=== PATIENT | male | born 1995 | race Caucasian/White ===

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

== ENCOUNTER 2017-05-21 00:20 | Emergency (ER) | END 2017-05-21 03:32 | disposition home or self-care (01) ==

== ENCOUNTER 2017-09-06 17:29 | Emergency (ER) | END 2017-09-06 17:57 | disposition home or self-care (01) ==

== ENCOUNTER 2017-09-08 23:47 | Emergency (ER) | END 2017-09-09 02:44 | disposition home or self-care (01) ==

== ENCOUNTER 2017-11-20 15:39 | Emergency (ER) | END 2017-11-20 19:43 | disposition home or self-care (01) ==

== ENCOUNTER 2018-06-11 23:35 | Emergency (ER) | payer OTHER ==
[~2018-06-11] VITALS: Ht 179.1 cm; Wt 73.0 kg
[~2018-06-11 23:35] MED LIST changes: +AMOX1TAB10 PO; +AMOX500C2 PO; +BEN25 PO; +BENZ-6 PO; +FEXO180T61 PO; +FLUT9.9S NASAL; +HYDR-4011 PO; +LORA10CA PO; +NAPR-985 PO; +TRAM50TA2 PO
[2018-06-11 23:36] VITALS: Ht 179.1 cm; Wt 73.0 kg
[2018-06-12] MEDS ORDERED: PSEU120T12 PO (01:51)
[2018-06-12] MEDS ORDERED: AMOX1TAB10 PO (01:51)
--- NOTE | 2018-06-12 01:54 | ERD ---
ER Documentation Chief Complaint Chief Complaint flu-liked symptoms (body aches,nasal congestion,fever,achy throat) x3days HPI This is a 22-year-old male with a nonsignificant past medical history presents ED with complaints of nasal congestion and sinus pain and pressure for the past 3 days. Patient admits to green nasal drainage, congestion, headache, ear pain. Admits to mild cough. Denies shortness breath, trouble breathing, wheezing, fever, chills, nausea, vomiting, diarrhea, constipation or other symptoms. No known drug allergies. ROS All systems reviewed and are negative except as per history of present illness. Medications Home Meds Active Scripts Pseudoephedrine Hcl (Sudafed 12 Hour) 120 Mg Tablet.sa, 120 MG PO Q12 for 5 Days Prov:CARLOS TORRES PA-C 06/12/18 Amoxicillin/Potassium Clav (Amox-Clav 875-125 mg Tablet) 875-125 mg Tab, 1 TAB PO BID for 10 Days, #20 TAB Prov:CARLOS TORRES PA-C 06/12/18 Hydrocodone/Acetaminophen ([place] 5-325 Tablet) 1 Each Tablet, 1 TAB PO Q8H PRN for PAIN, #12 TAB Prov:MEENA CLAROS MD 11/20/17 Ibuprofen* (Motrin*) 600 Mg Tab, 600 MG PO Q8 for 5 Days, #15 TAB Prov:MEENA CLAROS MD 11/20/17 Loratadine* (Claritin*) 10 Mg Capsule, 10 MG PO DAILY, #30 CAP Prov:PASILATEQUILA CASTILLO 09/09/17 Benzonatate* (Tessalon Perle*) 100 Mg Capsule, 100 MG PO Q8H PRN for COUGH, #20 CAP Prov:PASTEQUILA RAMÍREZ F 09/09/17 Amoxicillin/Potassium Clav (Amox-Clav 875-125 mg Tablet) 875-125 mg Tab, 1 TAB PO BID for 10 Days, #20 TAB Prov:PASILATEQUILA CASTILLO F 09/09/17 Fluticasone Propionate (Flonase Allergy Relief) 9.9 Ml [place].susp, 1 SPRAY NASAL BID, #1 BOTTLE TO EACH NOSTRIL Prov:DUNG PABLO 09/06/17 Fexofenadine Hcl* (Rhina*) 180 Mg Tablet, 180 MG PO DAILY, #30 TAB Prov:DUNG PABLO Alexia 09/06/17 Diphenhydramine Hcl* (Benadryl*) 25 Mg Cap, 25 MG PO Q6, #30 CAP Prov:DUNG PABLO C 09/06/17 Ibuprofen* (Motrin*) 600 Mg Tab, 600 MG PO Q6H PRN for PAIN AND OR ELEVATED TEMP, #30 TAB Prov:ELZA PYLE PEACH GROWER 05/21/17 Amoxicillin* (Amoxicillin*) 500 Mg Cap, 500 MG PO TID for 10 Days, CAP Prov:ELZA PYLE PEACH GROWER 05/21/17 Naproxen* (Naprosyn*) 500 Mg Tablet, 500 MG PO BID PRN for PAIN AND/OR INFLAM MATION, #30 TAB Prov:ROSARIO LORD-C 12/03/16 Tramadol HCl (Tramadol HCl) 50 Mg Tablet, 50 MG PO Q4 PRN for PAIN, #20 TAB Prov:ROSARIO LORDC 12/03/16 Ibuprofen* (Motrin*) 600 Mg Tab, 600 MG PO Q6, #30 TAB Prov:ROSARIO LORD-C 11/26/15 Gentamicin Sulfate* (Gentamicin Sulfate* Ophth) 0.3% - 5 Ml Drops, 1 DROP LEFT EYE Q4 for 7 Days, EA Prov:ROSARIO LORD-C 11/26/15 Allergies Allergies: Coded Allergies: No Known Allergy (Unverified , 05/21/17) PMhx/Soc Medical and Surgical Hx: pt denies Medical Hx, pt denies Surgical Hx History of Surgery: No Anesthesia Reaction: No Hx Neurological Disorder: No Hx Respiratory Disorders: No Hx Cardiac Disorders: No Hx Psychiatric Problems: No Hx Miscellaneous Medical Probl: No Hx Alcohol Use: Yes Hx Substance Use: Yes (marijuana) Hx Tobacco Use: No FmHx Family History: No diabetes Physical Exam Vitals Vital Signs Date Temp Pulse Resp B/P (MAP) Pulse Ox O2 O2 Flow FiO2 Time Delivery Rate 06/11/18 98.8 72 18 112/60 97 23:36 (77) Physical Exam Const: No acute distress Head: Atraumatic Eyes: Normal Conjunctiva ENT: Normal External Ears, Nose and Mouth. Tympanic membrane visualized bilaterally with no bulging, erythema, purulent air-fluid line seen, there is tenderness to percussion of bilateral maxillary sinuses, sinus congestion present, no tonsillar adenopathy, exudate or erythema, no kissing tonsils, no uvula deviation, Neck: Full range of motion. No meningismus. Resp: Clear to auscultation bilaterally Cardio: Regular rate and rhythm, no murmurs Neur: Awake and alert Psych: Normal Mood and Affect Results 24 hrs Current Medications Medications Dose Sig/Sanjeev Start Time Status Last (Trade) Ordered Route PRN Stop Time Admin Dose Reason Admin 50 mg ONCE ONCE 06/12/18 Diphenhydrami PO 02:00 ne HCl 06/12/18 02:01 (Benadryl) Procedures/MDM ER COURSE: The patient was stable throughout ED course. I kept the patient and/or family informed of laboratory and diagnostic imaging results throughout the emergency room course. The patient was promptly evaluated and a treatment plan was devised based on H&P and other data. This plan was discussed with the patient who agreed and had no further questions or concerns prior to discharge. MEDICAL DECISION MAKIN-year-old male presents ED with complaints of nasal congestion and sinus pain and pressure times 3 days. Given history and physical this is likely sinusitis. No evidence of ENT emergency including the not limited to SEPSIS, MENINGITIS, retro pharyngeal abscess, peritonsillar abscess, Ludwigs, epiglottitis, mastoiditis. Patient's vitals are stable she can be managed outpatient with close follow-up. Advised patient follow up with primary care in 48 hours. Return to ED with any worsening symptoms DISPOSITION PLAN: We discussed follow up with the patient's primary care doctor within 24 to 48 hours. Patient counseled regarding my diagnostic impression and care plan. Prior to discharge all questions answered. Pt agrees with treatment plan and understands strict return precautions. Precautionary instructions provided including instructions to return to the ER if not improving or for any worsening or changing symptoms or concerns. ExitCare instructions provided. Prior to discharge, patients vital signs have been reviewed SPECIALIST FOLLOW UP RECOMMENDED: None Patient has been advised to follow up with primary care in 1-2 days. Disclaimer: Inadvertent spelling and grammatical errors are likely due to EHR/dictation software use and do not reflect on the overall quality of patient care. Also, please note that the electronic time recorded on this note does not necessarily reflect the actual time of the patient encounter. Departure Diagnosis: Primary Impression: Sinusitis Sinusitis location: unspecified location Chronicity: unspecified Qualified Codes: J32.9 - Chronic sinusitis, unspecified Condition: Stable Patient Instructions: Sinusitis, Abx Tx Referrals: COMMUNITY CLINICS YOU HAVE RECEIVED A MEDICAL SCREENING EXAM AND THE RESULTS INDICATE THAT YOU DO NOT HAVE A CONDITION THAT REQUIRES URGENT TREATMENT IN THE EMERGENCY DEPARTMENT. FURTHER EVALUATION AND TREATMENT OF YOUR CONDITION CAN WAIT UNTIL YOU ARE SEEN IN YOUR DOCTORS OFFICE WITHIN THE NEXT 1-2 DAYS. IT IS YOUR RESPONSIBILITY TO MAKE AN APPOINTMENT FOR FOLOW-UP CARE. IF YOU HAVE A PRIMARY DOCTOR --you should call your primary doctor and schedule an appointment IF YOU DO NOT HAVE A PRIMARY DOCTOR YOU CAN CALL OUR PHYSICIAN REFERRAL HOTLINE AT IF YOU CAN NOT AFFORD TO SEE A PHYSICIAN YOU CAN CHOSE FROM THE FOLLOWING [facility] [address] [facility]. [facility] [address] [facility] [facility] [address] [facility] [facility] [address] [facility]. [facility] [address] [facility]. [facility]. [address] Additional Instructions: Patient advised to return to the ED immediately for new or worsening symptoms. Patient advised to follow up with primary care provider in the next 24-48 hours. Patient verbalized understanding and agrees with treatment plan and course of action. If patient has no primary care they may follow up with one of the [facility] listed on the following page or one of the options listed below [facility] + [facility] [address] [place] [address] or [facility] [address] [place] [address] or [facility] [address] [place] [address] CARLOS TORRES PA-C Jun 12, 2018 01:54
[2018-06-12] MEDS ORDERED: DIPHENHYDRAMINE 50 MG CAP PO ONE (02:00)
[2018-06-12 02:10] VITALS: BP 122/76; PULSE 67; RESP 18
== END 2018-06-12 02:13 | disposition home or self-care (01) ==
LOC: FTE 23:35
DX: J32.9 Chronic sinusitis, unspecified (principal)
CPT/HCPCS: Z7502; Z7610; 99283